=== PATIENT | female | born 1930 | race Caucasian/White ===

== ENCOUNTER 2018-01-09 14:03 | Inpatient (IN) | payer OTHER ==
[~2018-01-09] VITALS: Ht 165.1 cm; Wt 81.6 kg
[~2018-01-09 14:03] MED LIST: AMIO200T2 PO; AMLO5TAB2 PO; ASCO1TAB42 PO; BISA10SU12 RC; CHOL200026 PO; CYAN25006 PO; DOCU-141 PO; GABA-534 PO; Glycerin RC; HYDR-548 PO; HYDR-551 PO; LEVO50TA8 PO; LISI-603 PO; MAGN400O6 PO; OMEP20CA4 PO; OSTEO BI-FLEX1 EACH PO; SIMV20TA2 PO; SULF1TAB48 PO; Sennosides PO; WARF3TAB29 PO; Zolpidem Tartrate PO
--- NOTE | 2018-01-09 14:21 | NUR ---
PT IS IN ROOM #1A. DR HOLLAND EVALUATED THE PT.
[2018-01-09] MEDS ORDERED: CEFTRIAXONE 1 G in IV DEXTROSE 5% 50 ML IV ONE (14:30)
[2018-01-09] MEDS ORDERED: IV NORMAL SALINE 1000 ML BAG IV ONE (14:30)
[2018-01-09] MEDS ORDERED: CEFTRIAXONE 1 G VIAL ONE (14:54)
[2018-01-09 14:59] LABS: BASOPHILS % (AUTO) 0.5 % (0.0-2.0); EOSINOPHILS % (AUTO) 0.1 % (0.0-7.0); HEMATOCRIT 37.2 % (31.2-41.9); HEMOGLOBIN 12.5 g/dL (10.9-14.3); LYMPHOCYTES # (AUTO) 0.6 K/uL (20.0-40.0); LYMPHOCYTES % (AUTO) 9.5 % (20.5-51.5); MEAN CORPUSCULAR HEMOGLOBIN 29.5 uug (24.7-32.8); MEAN CORPUSCULAR HGB CONC 34 g/dL (32.3-35.6); MEAN CORPUSCULAR VOLUME 87.9 fL (75.5-95.3); MONOCYTES # (AUTO) 0.4 K/uL (2.0-10.0); NEUTROPHILS # (AUTO) 5.3 K/uL (1.8-8.9); NEUTROPHILS % (AUTO) 82.9 % (38.5-71.5); PLATELET COUNT (AUTO) 158 K/uL (179-408); RED BLOOD CELL COUNT(AUTO) 4.24 MIL/uL (3.63-4.92); WHITE BLOOD COUNT (AUTO) 6.3 K/uL (3.8-11.8)
[2018-01-09] MEDS ORDERED: ALBUTEROL SULFATE 2.5 MG/3 ML NEBU NEB ONE (15:00)
[2018-01-09] MEDS ORDERED: BENZONATATE 100 MG CAPSULE PO ONE (15:00)
[2018-01-09] MEDS ORDERED: BENZONATATE 100 MG CAPSULE ONE (15:00)
[2018-01-09] MEDS ORDERED: ALBUTEROL SULFATE 2.5 MG/3 ML NEBU ONE (15:01)
[2018-01-09 15:07] LABS: CARBON DIOXIDE 24 mmol/L (21-32); CHLORIDE 104 mmol/L (98-107); CREATININE 1.5 mg/dL (0.6-1.3); GLUCOSE 136 mg/dL (74-106); POTASSIUM 4.4 mmol/L (3.5-5.1); UREA NITROGEN, BLOOD 15 mg/dL (7-18)
[2018-01-09 15:20] LABS: ALANINE AMINOTRANSFERASE 82 U/L (14-59); ALKALINE PHOSPHATASE 104 U/L (50-136); ASPARTATE AMINOTRANSFERASE 61 U/L (15-37); BILIRUBIN,DIRECT 0.2 mg/dL (0.0-0.2); BILIRUBIN,TOTAL 0.7 mg/dL (0.2-1.0); TOTAL PROTEIN, SERUM 6.5 g/dL (6.4-8.2)
[2018-01-09] MEDS ORDERED: IV NORMAL SALINE 0 ML ONE (15:27)
[2018-01-09] MEDS ORDERED: IOHEXOL 350 100 ML INFUS..BTL ONE (15:27)
[2018-01-09] MEDS ORDERED: BENZ-38 PO (15:38)
[2018-01-09] MEDS ORDERED: METO-295 PO (15:38)
[2018-01-09] MEDS ORDERED: DIPH1TAB PO (15:38)
[2018-01-09] MEDS ORDERED: ACET325T53 PO (15:38)
[2018-01-09] MEDS ORDERED: MULT-1045 PO (15:38)
[2018-01-09] MEDS ORDERED: SIMV80TA5 PO (15:38)
[2018-01-09] MEDS ORDERED: GLUC-187 PO (15:38)
[2018-01-09] MEDS ORDERED: DICL100G16 TP (15:38)
[2018-01-09] MEDS ORDERED: OMEP40CA37 PO (15:38)
[2018-01-09] MEDS ORDERED: ALEN70TA45 PO (15:38)
[2018-01-09] MEDS ORDERED: ONDA4TAB10 PO (15:38)
[2018-01-09 16:45] LABS: *BILIRUBIN,URIN NEGATIVE (NEGATIVE); *BLOOD, URINE NEGATIVE (NEGATIVE); *CLARITY,URINE SLIGHTLY CLOUDY (CLEAR); *COLOR,URINE YELLOW (YELLOW); *KETONES,URINE TRACE (NEGATIVE); *PROTEIN,URINE 1+ (NEGATIVE); *UROBILINOGEN,URINE 0.2 E.U./dl (NORMAL); LEUKOCYTE ESTERASE ,URINE NEGATIVE (NEGATIVE); NITRITE, URINE NEGATIVE (NEGATIVE); UGLUCOSE NEGATIVE (NEGATIVE)
[2018-01-09] MEDS ORDERED: PIPERACILLIN SODIUM/TAZOBACTAM 2.25 G in IV DEXTROSE 5% 50 ML IV ONE (16:45)
[2018-01-09 17:14] LABS: BACTERIA,URINE FEW /HPF (NONE SEEN); RBC,URINE 0-3 /HPF (0-3); SQUAMOUS EPITHELIAL CELL,UR MODERATE /HPF (NONE SEEN)
[2018-01-09] MEDS ORDERED: PIPERACILLIN/TAZO 2.25 GM VIAL ONE (17:16)
--- NOTE | 2018-01-09 17:42 | NUR ---
report was given to professor of journalism. pt was transfered to room #218.
--- NOTE | 2018-01-09 18:00 | NUR ---
PATIENT TRANSFERRED FROM ER INTO MEDICAL-SURGICAL FLOOR IN STABLE CONDITION, NO S/S OF DISTRESS, VITAL SIGNS TAKEN AND ARE STABLE. TRANSFERRED ONTO FLOOR WITH FREEDOM HENDERSON CHECKLIST COMPLETED AND SIGNED, ID-BAND PLACED, TELEMETRY MONITORING PLACED, SINUS RHYTHM ON MONITOR.
--- NOTE | 2018-01-09 19:00 | NUR ---
PATIENT ARRIVED BACK ONTO FLOOR FROM VQ-SCAN AT THIS TIME. PATIENT LEFT FOR VQ-SCAN AT 1830. TELEMETRY LEADS PLACED BACK ON.
--- NOTE | 2018-01-09 19:30 | NUR ---
Patient back to room from CT scan. Placed back on electronic device monitor- patient is A-pacing on the monitor. No signs of distress noted.
[2018-01-09] MEDS ORDERED: ONDANSETRON HCL 4 MG TABLET PO PRN (20:00)
[2018-01-09 20:15] VITALS: BP 128/58
[2018-01-09] MEDS ORDERED: ONDANSETRON 4 MG/2 ML VIAL IV PRN (20:15)
[2018-01-09] MEDS ORDERED: ENOXAPARIN SODIUM 30 MG/0.3 ML DISP.SYRIN SQ SCH (20:15)
[2018-01-09] MEDS ORDERED: VANCOMYCIN IV ONE (21:00)
[2018-01-09] MEDS ORDERED: NORMAL SALINE IV ONE (21:00)
[2018-01-09] MEDS: ACETAMINOPHEN 325 MG TABLET PO PRN (21:26)
[2018-01-09] MEDS: SIMVASTATIN 40 MG TABLET PO SCH (21:26)
[2018-01-09] MEDS: IV NS 1000 ML 1,000 ML IV PRN (21:27)
[2018-01-09] MEDS ORDERED: DOXYCYCLINE HYCLATE 100 MG INJ IV ONE (21:34)
[2018-01-09] MEDS ORDERED: VANCOMYCIN 1000 MG VIAL ONE (21:34)
--- NOTE | 2018-01-09 21:44 | NUR ---
Vancomycin IV 1mg dose clarified w/ Dr. Jimenez. Received new order, Vancomycin 1 Gm x 1 dose given.
[2018-01-09] MEDS: DOXYCYCLINE HYCLATE IV 100 MG in IV DEXTROSE 5% 100 ML IV SCH (21:49)
[2018-01-09] MEDS: GUAIFENESIN/DEXTROMETHORPHAN 5 ML UDC PO PRN (21:55)
[2018-01-09] MEDS ORDERED: VANCOMYCIN IV 1 G in PREMIXED 0 EACH IV ONE (22:00)
[2018-01-09] MEDS: IPRATROPIUM BROMIDE 0.5 MG/2.5 ML NEBU NEB SCH (22:03)
[2018-01-09] MEDS: ALBUTEROL SULFATE 2.5 MG/3 ML NEBU NEB SCH (22:03)
[2018-01-10] VITALS: BP 110/55
[2018-01-10] MEDS: IPRATROPIUM BROMIDE 0.5 MG/2.5 ML NEBU NEB SCH ×6 (02:30→22:57)
[2018-01-10] MEDS: ALBUTEROL SULFATE 2.5 MG/3 ML NEBU NEB SCH ×6 (02:30→22:57)
[2018-01-10 04:00] VITALS: BP 132/53
[2018-01-10] MEDS: GUAIFENESIN/DEXTROMETHORPHAN 5 ML UDC PO PRN ×2 (04:25→15:10)
[2018-01-10] MEDS: PANTOPRAZOLE SODIUM 40 MG TABLET.DR PO SCH (06:00)
[2018-01-10 06:48] LABS: BASOPHILS % (AUTO) 0.4 % (0.0-2.0); EOSINOPHILS % (AUTO) 0.1 % (0.0-7.0); HEMOGLOBIN 11.4 g/dL (10.9-14.3); LYMPHOCYTES # (AUTO) 0.5 K/uL (20.0-40.0); LYMPHOCYTES % (AUTO) 9.9 % (20.5-51.5); MEAN CORPUSCULAR HEMOGLOBIN 30.1 uug (24.7-32.8); MEAN CORPUSCULAR HGB CONC 34 g/dL (32.3-35.6); MEAN CORPUSCULAR VOLUME 87.9 fL (75.5-95.3); MONOCYTES # (AUTO) 0.4 K/uL (2.0-10.0); NEUTROPHILS # (AUTO) 4.4 K/uL (1.8-8.9); NEUTROPHILS % (AUTO) 81.6 % (38.5-71.5); PLATELET COUNT (AUTO) 143 K/uL (179-408); RED BLOOD CELL COUNT(AUTO) 3.78 MIL/uL (3.63-4.92); WHITE BLOOD COUNT (AUTO) 5.5 K/uL (3.8-11.8)
[2018-01-10 06:53] LABS: HEMATOCRIT 33.2 % (31.2-41.9)
--- NOTE | 2018-01-10 07:00 | NUR ---
Fairly rested, patient still coughing productively. Instructed to collect sputum per MD order. Specimen container provided. See CHILEL adm po PRN. Assisted to the bathroom. No acute resp distress. A-paced on the monitor.
[2018-01-10 07:04] LABS: THYROID STIMULATING HORMONE 1.223 mIU/mL (0.358-3.740)
[2018-01-10 07:14] LABS: ALANINE AMINOTRANSFERASE 59 U/L (14-59); ALKALINE PHOSPHATASE 80 U/L (50-136); ASPARTATE AMINOTRANSFERASE 37 U/L (15-37); BILIRUBIN,TOTAL 0.4 mg/dL (0.2-1.0); CARBON DIOXIDE 22 mmol/L (21-32); CHLORIDE 104 mmol/L (98-107); CHOLESTEROL 80 mg/dL (<200); CREATININE 1.3 mg/dL (0.6-1.3); GLUCOSE 130 mg/dL (74-106); HDL CHOLESTEROL 38 mg/dL (40-60); MAGNESIUM 1.6 mg/dL (1.8-2.4); POTASSIUM 4.1 mmol/L (3.5-5.1); TOTAL PROTEIN, SERUM 5.9 g/dL (6.4-8.2); TRIGLYCERIDES 86 MG/DL (30-150); UREA NITROGEN, BLOOD 15 mg/dL (7-18)
--- NOTE | 2018-01-10 08:00 | NUR ---
Discussed plan of care with pt re: fall precaution, proper pain management, and management of her cough and needed sputum. Pt agreeable with plan of care. Pt is in no acute distress. Call light is within reach.
[2018-01-10] MEDS: LISINOPRIL 20 MG TABLET PO SCH (09:00)
[2018-01-10] MEDS ORDERED: LEVOTHYROXINE SODIUM 50 MCG TABLET PO SCH (09:00)
[2018-01-10] MEDS ORDERED: VANCOMYCIN IV 1,250 MG in IV DEXTROSE 5% 500 ML IV ONE (09:00)
[2018-01-10] MEDS: BENZONATATE 100 MG CAPSULE PO SCH ×3 (09:02→16:12)
[2018-01-10] MEDS: DOXYCYCLINE HYCLATE IV 100 MG in IV DEXTROSE 5% 100 ML IV SCH ×2 (09:03→20:53)
[2018-01-10] MEDS: GABAPENTIN 300 MG CAPSULE PO SCH ×2 (09:03→16:12)
--- NOTE | 2018-01-10 10:07 | NUR ---
Clinical Pharmacy Note: Vancomycin Pharmacy to Dose Subjective: To start vancomycin in this 87 y/o female for indication of "suspected infection" (elevated temp, reduced renal fxn) Objective: weight 81 kg height 165 cm BMI 30 BUN 15 Scr 1.3 Wbc 5.5 temp 99.6 1gm given 01/09 @2200 in ER Random: 9.4 today with am labs Assessment/Plan Will dose per level d/t age and unstable renal fxn (1.5 last night in er, 1.3 today). Based on random this am, dosed one time of 1500mg today at 0900. next ranomd ordered with tomorrow am labs. Will check in am and re-dose as needed. If renal function were to appear stable, may consider starting regimen. Will follow
[2018-01-10 11:38] VITALS: BP 146/53
[2018-01-10] MEDS: ACETAMINOPHEN 325 MG TABLET PO PRN (15:10)
[2018-01-10] MEDS: MAGNESIUM SULFATE/D5W 100 ML IV SCH ×2 (15:14→16:17)
[2018-01-10] MEDS: WARFARIN SODIUM 3 MG TABLET PO SCH (16:13)
[2018-01-10 16:23] VITALS: BP 121/61
[2018-01-10] MEDS ORDERED: ZOLPIDEM 5 MG TABLET PO PRN (17:45)
[2018-01-10] MEDS: HYDROCODONE/APAP 5-325MG TABLET PO PRN ×2 (17:56→23:22)
--- NOTE | 2018-01-10 18:52 | NUR ---
Plan of care effective. No fall noted this shift. Cough was managed with Robitussin, honey and tessalon pearls, and vicodin. HHN tx was given routinely as ordered by RT. Pt is in no acute distress.
--- NOTE | 2018-01-10 18:54 | NUR ---
Pt unable to cough out phlegm/sputum specimen. IV was restarted on left F/A secondary to IV on right AC was infiltrated - applied ice and elevated.
--- NOTE | 2018-01-10 20:00 | NUR ---
PATIENT RESTING,LESS COUGH,CONTINUE BREATHING TREATMENT PER R.T.,EFFECTIVE,ON O2 2L/M VIA N/C,NO RESPIRATORY DISTRESS,FALL PRECAUTIONS MAINTAINS.
[2018-01-10 20:41] VITALS: BP 117/48
[2018-01-10] MEDS: SIMVASTATIN 40 MG TABLET PO SCH (20:54)
[2018-01-10] MEDS: LACTOBACILLUS RHAMNOSUS GG 1 EACH CAPSULE PO SCH (20:54)
[2018-01-10] MEDS: IV NS 1000 ML 1,000 ML IV PRN (23:22)
[2018-01-11 00:42] VITALS: BP 158/69
[2018-01-11] MEDS: ALBUTEROL SULFATE 2.5 MG/3 ML NEBU NEB SCH ×6 (03:12→23:54)
[2018-01-11] MEDS: IPRATROPIUM BROMIDE 0.5 MG/2.5 ML NEBU NEB SCH ×6 (03:12→23:54)
[2018-01-11 04:00] VITALS: BP 132/69
[2018-01-11] MEDS: PANTOPRAZOLE SODIUM 40 MG TABLET.DR PO SCH (06:29)
[2018-01-11] MEDS: LEVOTHYROXINE SODIUM 50 MCG TABLET PO SCH (06:29)
[2018-01-11] MEDS: GUAIFENESIN/DEXTROMETHORPHAN 5 ML UDC PO PRN ×2 (06:29→20:40)
--- NOTE | 2018-01-11 06:57 | NUR ---
PATIENT IS AFEBRILE,ALERT AND ORIENTED,AMBULATORY .A PACING ON MONITOR,ELVIS DM ADMIN FOR COUGHING.
[2018-01-11 07:00] LABS: CARBON DIOXIDE 27 mmol/L (21-32); CHLORIDE 102 mmol/L (98-107); CREATININE 1.2 mg/dL (0.6-1.3); GLUCOSE 109 mg/dL (74-106); MAGNESIUM 2.1 mg/dL (1.8-2.4); POTASSIUM 4.7 mmol/L (3.5-5.1); UREA NITROGEN, BLOOD 15 mg/dL (7-18); VANCOMYCIN,RANDOM 11.9 ug/mL (18.0-26.0)
--- NOTE | 2018-01-11 07:00 | NUR ---
IV GOT INFILTRATED,RESTARTED IN RT. FOREARM WITH ANGIO GA 22.
[2018-01-11 08:00] VITALS: BP 161/64
[2018-01-11] MEDS: HYDROCODONE/APAP 5-325MG TABLET PO PRN ×3 (08:08→20:40)
[2018-01-11] MEDS: LACTOBACILLUS RHAMNOSUS GG 1 EACH CAPSULE PO SCH ×2 (08:08→20:40)
[2018-01-11] MEDS: BENZONATATE 100 MG CAPSULE PO SCH ×3 (08:08→17:00)
[2018-01-11] MEDS: GABAPENTIN 300 MG CAPSULE PO SCH ×2 (08:09→17:00)
[2018-01-11] MEDS: LISINOPRIL 20 MG TABLET PO SCH (08:09)
[2018-01-11] MEDS: DOXYCYCLINE HYCLATE IV 100 MG in IV DEXTROSE 5% 100 ML IV SCH ×2 (10:06→20:38)
[2018-01-11] MEDS ORDERED: VANCOMYCIN IV 1,250 MG in IV NORMAL SALINE 500 ML IV SCH (11:00)
[2018-01-11 11:16] VITALS: BP 141/53
--- NOTE | 2018-01-11 13:38 | NUR ---
Clinical Pharmacy Note: Vancomycin Pharmacy to Dose Subjective: To continue vancomycin in this 87 y/o female for indication of "suspected infection" (possible CAP/bronchitis) Objective: weight 81 kg height 165 cm BMI 30 BUN 15 Scr 1.2 Wbc 5.5(01/10) temp 97.8 Random: 11.9 today with am labs Assessment/Plan Since renal function is stable, will start scheduled dosing. Vancomycin 1250mg IV every 30 hrs, first dose today at 1100. Will draw trough by 4th dose(not done yet) for expected trough around 15. Will follow daily.
[2018-01-11] MEDS: CEFTRIAXONE 1 G in IV DEXTROSE 5% 50 ML IV SCH (14:19)
[2018-01-11 15:05] VITALS: BP 112/76
[2018-01-11] MEDS: WARFARIN SODIUM 3 MG TABLET PO SCH (17:02)
--- NOTE | 2018-01-11 20:00 | NUR ---
Received pt alert and oriented x 4 with at bedside. No s/s of distress noted at this time. Will continue to monitor.
[2018-01-11 20:21] VITALS: BP 168/63
[2018-01-11] MEDS: SIMVASTATIN 40 MG TABLET PO SCH (20:38)
[2018-01-12] MEDS: IPRATROPIUM BROMIDE 0.5 MG/2.5 ML NEBU NEB SCH ×6 (02:54→22:31)
[2018-01-12] MEDS: ALBUTEROL SULFATE 2.5 MG/3 ML NEBU NEB SCH ×6 (02:54→22:31)
[2018-01-12 04:00] VITALS: BP 115/73
[2018-01-12] MEDS: GUAIFENESIN/DEXTROMETHORPHAN 5 ML UDC PO PRN ×3 (05:23→20:38)
[2018-01-12] MEDS: HYDROCODONE/APAP 5-325MG TABLET PO PRN ×3 (05:24→20:39)
--- NOTE | 2018-01-12 05:44 | NUR ---
Intermittent coughing noted throughout the night. Medications administered as ordered. No respiratory distress noted. All needs met. Call light within reach. Vital signs WNL. Will continue to monitor and endorse to day shift nurse.
[2018-01-12] MEDS: LEVOTHYROXINE SODIUM 50 MCG TABLET PO SCH (06:29)
[2018-01-12] MEDS: PANTOPRAZOLE SODIUM 40 MG TABLET.DR PO SCH (06:29)
[2018-01-12] MEDS: LACTOBACILLUS RHAMNOSUS GG 1 EACH CAPSULE PO SCH ×2 (08:52→20:20)
[2018-01-12] MEDS: LISINOPRIL 20 MG TABLET PO SCH (08:52)
[2018-01-12] MEDS: DOXYCYCLINE HYCLATE IV 100 MG in IV DEXTROSE 5% 100 ML IV SCH ×2 (08:52→20:22)
[2018-01-12] MEDS: GABAPENTIN 300 MG CAPSULE PO SCH ×2 (08:52→16:23)
[2018-01-12] MEDS: BENZONATATE 100 MG CAPSULE PO SCH ×3 (08:52→16:23)
--- NOTE | 2018-01-12 10:14 | NUR ---
Clinical Pharmacy Note: Vancomycin Pharmacy to Dose Subjective: To continue vancomycin in this 87 y/o female for indication of "suspected infection" (possible CAP/bronchitis) Objective: weight 81 kg height 165 cm BMI 30 BUN 15 (01/11) Scr 1.2 (01/11) Wbc 5.5(01/10) temp 97.6 Assessment/Plan Will continue same dose of Vancomycin 1250mg IV every 30 hrs for today. Second dose is due today at 1700. Will draw trough by 4th dose(not done yet) for expected trough around 15. Will follow daily.
[2018-01-12] MEDS ORDERED: WARFARIN SODIUM 1 MG TABLET PO SCH (11:30)
[2018-01-12] MEDS ORDERED: ACETYLCYSTEINE 200 MG/1 ML 10 ML VIAL NEB SCH (12:00)
[2018-01-12] MEDS: CEFTRIAXONE 1 G in IV DEXTROSE 5% 50 ML IV SCH (14:24)
[2018-01-12] MEDS: ACETYLCYSTEINE 10% 4ML VIAL NEB SCH ×2 (15:35→22:31)
[2018-01-12 15:40] VITALS: BP 143/68
[2018-01-12] MEDS: FUROSEMIDE 20 MG/2 ML VIAL IV SCH ×2 (16:23→20:20)
[2018-01-12] MEDS ORDERED: WARFARIN SODIUM 3 MG TABLET PO SCH (17:00)
[2018-01-12] MEDS: KETOROLAC TROMETHAMINE 15 MG INJ IVP PRN (18:15)
--- NOTE | 2018-01-12 18:30 | NUR ---
Plan of care effective. PT unable to give sputum. Pts cough managed with Robitussin and pain managed with vicodin along with her routine meds.
[2018-01-12] MEDS: SIMVASTATIN 40 MG TABLET PO SCH (20:20)
[2018-01-12 20:36] VITALS: BP 139/59
--- NOTE | 2018-01-12 20:40 | NUR ---
PATIENT IS AWAKE IN BED, AAOX3 C/O OF RIB PAIN WITH COUGHING. PAIN MEDS GIVEN PRN, VSS WNL. SAFETY AND COMFORT MEASURES IN PLACE. WILL CONTINUE TO MONITOR PATIENT
[2018-01-13] MEDS: IPRATROPIUM BROMIDE 0.5 MG/2.5 ML NEBU NEB SCH ×6 (02:31→22:56)
[2018-01-13] MEDS: ALBUTEROL SULFATE 2.5 MG/3 ML NEBU NEB SCH ×6 (02:31→22:56)
[2018-01-13 04:00] VITALS: BP 140/59
[2018-01-13] MEDS: GUAIFENESIN/DEXTROMETHORPHAN 5 ML UDC PO PRN ×3 (05:49→23:51)
[2018-01-13] MEDS: HYDROCODONE/APAP 5-325MG TABLET PO PRN ×3 (05:49→21:15)
[2018-01-13] MEDS: LEVOTHYROXINE SODIUM 50 MCG TABLET PO SCH (06:04)
[2018-01-13] MEDS: PANTOPRAZOLE SODIUM 40 MG TABLET.DR PO SCH (06:04)
--- NOTE | 2018-01-13 06:10 | NUR ---
PATIENT SLEPT WELL THROUGH THE NIGHT. NO C/O SOB ON THIS SHIFT. VSS WITHIN PATIENT'S BASELINE, NO FEVER. PRN PAIN MEDS GIVEN X2 WITH EFFECT. SAFETY AND COMFORT MEASURES MAINTAINED AT TIMES
[2018-01-13] MEDS: ACETYLCYSTEINE 10% 4ML VIAL NEB SCH (07:30)
[2018-01-13] MEDS: GABAPENTIN 300 MG CAPSULE PO SCH ×2 (08:19→16:26)
[2018-01-13] MEDS: LACTOBACILLUS RHAMNOSUS GG 1 EACH CAPSULE PO SCH ×2 (08:19→21:04)
[2018-01-13] MEDS: BENZONATATE 100 MG CAPSULE PO SCH ×3 (08:19→16:26)
[2018-01-13 08:20] LABS: BASOPHILS % (AUTO) 0.8 % (0.0-2.0); EOSINOPHILS # (AUTO) 0.1 K/uL (0.0-0.7); EOSINOPHILS % (AUTO) 1.9 % (0.0-7.0); HEMATOCRIT 34.1 % (31.2-41.9); HEMOGLOBIN 11.9 g/dL (10.9-14.3); LYMPHOCYTES # (AUTO) 1.3 K/uL (20.0-40.0); LYMPHOCYTES % (AUTO) 26.6 % (20.5-51.5); MEAN CORPUSCULAR HGB CONC 35 g/dL (32.3-35.6); MEAN CORPUSCULAR VOLUME 86.2 fL (75.5-95.3); MONOCYTES # (AUTO) 0.5 K/uL (2.0-10.0); MONOCYTES % (AUTO) 9.9 % (0.0-11.0); NEUTROPHILS # (AUTO) 3.1 K/uL (1.8-8.9); NEUTROPHILS % (AUTO) 60.8 % (38.5-71.5); RED BLOOD CELL COUNT(AUTO) 3.96 MIL/uL (3.63-4.92); WHITE BLOOD COUNT (AUTO) 5.1 K/uL (3.8-11.8)
[2018-01-13] MEDS: FUROSEMIDE 20 MG/2 ML VIAL IV SCH (08:20)
[2018-01-13 08:25] LABS: PLATELET COUNT (AUTO) 193 K/uL (179-408)
[2018-01-13] MEDS: LISINOPRIL 20 MG TABLET PO SCH (08:26)
[2018-01-13] MEDS: DOXYCYCLINE HYCLATE IV 100 MG in IV DEXTROSE 5% 100 ML IV SCH (08:32)
[2018-01-13 08:35] LABS: CARBON DIOXIDE 30 mmol/L (21-32); CHLORIDE 100 mmol/L (98-107); CREATININE 1.4 mg/dL (0.6-1.3); GLUCOSE 104 mg/dL (74-106); MAGNESIUM 1.8 mg/dL (1.8-2.4); PHOSPHOROUS 4.6 mg/dL (2.5-4.9); POTASSIUM 4.5 mmol/L (3.5-5.1); UREA NITROGEN, BLOOD 20 mg/dL (7-18)
[2018-01-13 11:21] VITALS: BP 128/67
[2018-01-13] MEDS: CEFTRIAXONE 1 G in IV DEXTROSE 5% 50 ML IV SCH (13:02)
[2018-01-13] MEDS: GUAIFENESIN LA 600 MG TABLET.SA PO SCH ×2 (14:13→21:04)
[2018-01-13] MEDS: methylPREDNISolone SOD SUCC 40 MG/ML VIAL IV SCH ×2 (14:13→21:24)
[2018-01-13 15:10] VITALS: BP 118/72
[2018-01-13] MEDS: ACETYLCYSTEINE 20% 800 MG/4 ML VIAL NEB SCH ×2 (15:12→22:56)
[2018-01-13] MEDS ORDERED: WARFARIN SODIUM 1 MG TABLET PO SCH (17:00)
--- NOTE | 2018-01-13 18:43 | NUR ---
Clarification regarding MD's order nasal swab for whooping cough. Lab will verify.
--- NOTE | 2018-01-13 18:44 | NUR ---
Patient alert, in no distress, non productive cough noted, no SOB. Patient still c/o of rib pain from coughing, pain management as ordered. Patient remains afebrile. Requested patient to provide sputum sample but patient is unable to expectorate. Patient stated "I don't know why but nothing is coming out". Will endorse to the oncoming shift RN.
--- NOTE | 2018-01-13 19:50 | NUR ---
RECEIVED PATIENT AWAKE IN BED WITH AT BEDSIDE. PATIENT IS A/O X4. VERY PLEASANT WHEN APPROACHED. DENIES PAIN OR DISCOMFORT. ON O2 2L NC SATING WELL. NO RESP. DISTRESS NOTED. DENIES SOB. H/L INTACT AND PATENT. CALL LIGHT IN REACH. ALL NEEDS ATTENDED.
[2018-01-13 20:00] VITALS: BP 159/56
[2018-01-13] MEDS: SIMVASTATIN 40 MG TABLET PO SCH (21:04)
[2018-01-13] MEDS: KETOROLAC TROMETHAMINE 15 MG INJ IVP PRN (23:49)
--- NOTE | 2018-01-13 23:51 | NUR ---
PATIENT AWAKE IN BED. C/O COUGH AND PAIN UNDER RIBS FROM COUGHING. PATIENT GIVEN ROBITUSSIN 5ML PO PRN FOR COUGH AND TORADOL 15MG IVP PER RN. CALL LIGHT IN REACH. ALL NEEDS ATTENDED. WILL CONTINUE TO MONITOR.
[2018-01-14] MEDS: ALBUTEROL SULFATE 2.5 MG/3 ML NEBU NEB SCH ×6 (03:01→22:30)
[2018-01-14] MEDS: IPRATROPIUM BROMIDE 0.5 MG/2.5 ML NEBU NEB SCH ×6 (03:01→22:30)
[2018-01-14 05:11] VITALS: BP 162/77
[2018-01-14] MEDS: methylPREDNISolone SOD SUCC 40 MG/ML VIAL IV SCH ×3 (05:58→21:21)
[2018-01-14] MEDS: LEVOTHYROXINE SODIUM 50 MCG TABLET PO SCH (06:05)
[2018-01-14] MEDS: PANTOPRAZOLE SODIUM 40 MG TABLET.DR PO SCH ×2 (06:05→21:18)
[2018-01-14 06:11] LABS: BASOPHILS % (AUTO) 0.2 % (0.0-2.0); EOSINOPHILS % (AUTO) 0.3 % (0.0-7.0); HEMATOCRIT 32.1 % (31.2-41.9); HEMOGLOBIN 11.3 g/dL (10.9-14.3); LYMPHOCYTES # (AUTO) 0.5 K/uL (20.0-40.0); LYMPHOCYTES % (AUTO) 17.2 % (20.5-51.5); MEAN CORPUSCULAR HEMOGLOBIN 29.9 uug (24.7-32.8); MEAN CORPUSCULAR HGB CONC 35 g/dL (32.3-35.6); MEAN CORPUSCULAR VOLUME 85.3 fL (75.5-95.3); MONOCYTES # (AUTO) 0.1 K/uL (2.0-10.0); MONOCYTES % (AUTO) 2.5 % (0.0-11.0); NEUTROPHILS # (AUTO) 2.2 K/uL (1.8-8.9); NEUTROPHILS % (AUTO) 79.8 % (38.5-71.5); PLATELET COUNT (AUTO) 192 K/uL (179-408); RED BLOOD CELL COUNT(AUTO) 3.77 MIL/uL (3.63-4.92); WHITE BLOOD COUNT (AUTO) 2.8 K/uL (3.8-11.8)
[2018-01-14 06:13] LABS: CARBON DIOXIDE 27 mmol/L (21-32); CHLORIDE 98 mmol/L (98-107); CREATININE 1.3 mg/dL (0.6-1.3); GLUCOSE 142 mg/dL (74-106); PHOSPHOROUS 4.4 mg/dL (2.5-4.9); POTASSIUM 4.5 mmol/L (3.5-5.1); UREA NITROGEN, BLOOD 27 mg/dL (7-18)
[2018-01-14] MEDS: LISINOPRIL 20 MG TABLET PO SCH (06:20)
--- NOTE | 2018-01-14 06:20 | NUR ---
PATIENT AWAKE IN BED. RECHECKED PATIENTS BP AND RECEIVED 177/75. PATIENT GIVEN EARLY DOSE OF LISINOPRIL 20MG PO. ALL OTHER VSS. PATIENT DENIES PAIN. SLEPT WELL. CALL LIGHT IN REACH. ALL NEEDS ATTENDED. WILL CONTINUE TO MONITOR AND ASSESS.
[2018-01-14 06:58] VITALS: BP 148/67
--- NOTE | 2018-01-14 06:58 | NUR ---
rechecked patients blood pressure. trending down. 148/67. all other vss.
[2018-01-14] MEDS: ACETYLCYSTEINE 20% 800 MG/4 ML VIAL NEB SCH ×3 (07:31→22:30)
[2018-01-14] MEDS: BENZONATATE 100 MG CAPSULE PO SCH ×3 (08:00→16:32)
[2018-01-14] MEDS: LACTOBACILLUS RHAMNOSUS GG 1 EACH CAPSULE PO SCH ×2 (08:00→20:17)
[2018-01-14] MEDS: GUAIFENESIN LA 600 MG TABLET.SA PO SCH ×2 (08:00→20:17)
[2018-01-14] MEDS: GABAPENTIN 300 MG CAPSULE PO SCH ×2 (08:00→16:32)
[2018-01-14] MEDS: HYDROCODONE/APAP 5-325MG TABLET PO PRN ×2 (08:04→20:18)
[2018-01-14 11:12] VITALS: BP 136/53
[2018-01-14] MEDS: CEFTRIAXONE 1 G in IV DEXTROSE 5% 50 ML IV SCH (13:31)
--- NOTE | 2018-01-14 13:45 | NUR ---
NASAL SWAB SPECIMEN FOR WHOOPING COUGH SENT TO THE LAB ORDERED.
[2018-01-14 15:03] VITALS: BP 142/44
--- NOTE | 2018-01-14 18:00 | NUR ---
Patient alert, in no distress. Patient is pleasant, cooperative with care. Patient stated "I think I am getting better and improving". Patient no c/o of SOB. VS stable, afebrile. IV antibiotics administered as ordered, no adverse reaction noted. Safety measures in place. Spouse at bedside. Will continue to monitor.
[2018-01-14] MEDS ORDERED: hydrALAZINE HCL 10 MG TABLET PO PRN (19:45)
[2018-01-14 19:46] VITALS: BP 159/51
--- NOTE | 2018-01-14 20:15 | NUR ---
RECEIVED PATIENT AWAKE IN BED WITH AT BEDSIDE. PATIENT IS A/O X4. VERY PLEASANT WHEN APPROACHED. ASKING FOR NORCO. C/O PAIN UNDER BILATERAL RIBS, DUE TO COUGHING. PATIENT GIVEN NORCO 1 TAB PO PRN FOR PAIN. ON O2 2L NC SATING WELL. NO RESP. DISTRESS NOTED. DENIES SOB. H/L INTACT AND PATENT, NOTED TO LEFT HAND #22 GAUGE. CALL LIGHT IN REACH. ALL NEEDS ATTENDED.
[2018-01-14] MEDS: SIMVASTATIN 40 MG TABLET PO SCH (20:17)
[2018-01-14] MEDS ORDERED: MAG HYDROX/AL HYDROX/SIMETH 30 ML LIQUID UDC PO PRN (21:15)
[2018-01-14] MEDS: GUAIFENESIN/DEXTROMETHORPHAN 5 ML UDC PO PRN (21:46)
[2018-01-14] MEDS: KETOROLAC TROMETHAMINE 15 MG INJ IVP PRN (22:53)
[2018-01-15] MEDS: IPRATROPIUM BROMIDE 0.5 MG/2.5 ML NEBU NEB SCH ×6 (03:34→22:30)
[2018-01-15] MEDS: ALBUTEROL SULFATE 2.5 MG/3 ML NEBU NEB SCH ×6 (03:34→22:30)
[2018-01-15 04:39] VITALS: BP 128/74
[2018-01-15] MEDS: methylPREDNISolone SOD SUCC 40 MG/ML VIAL IV SCH ×3 (05:36→21:06)
--- NOTE | 2018-01-15 05:50 | NUR ---
PATIENT AWAKE IN BED. SLEPT WELL THROUGHOUT THE NIGHT. NO C/O PAIN AT THIS TIME. NO RESP. DISTRESS NOTED. VSS. CALL LIGHT IN REACH. ALL NEEDS ATTENDED. WILL CONTINUE TO MONITOR.
[2018-01-15] MEDS: LEVOTHYROXINE SODIUM 50 MCG TABLET PO SCH (06:03)
[2018-01-15] MEDS: ACETYLCYSTEINE 20% 800 MG/4 ML VIAL NEB SCH ×3 (07:04→22:30)
[2018-01-15] MEDS: BENZONATATE 100 MG CAPSULE PO SCH ×3 (08:08→21:06)
[2018-01-15] MEDS: LACTOBACILLUS RHAMNOSUS GG 1 EACH CAPSULE PO SCH ×2 (08:08→21:06)
[2018-01-15] MEDS: GABAPENTIN 300 MG CAPSULE PO SCH ×2 (08:08→16:20)
[2018-01-15] MEDS: PANTOPRAZOLE SODIUM 40 MG TABLET.DR PO SCH ×2 (08:08→21:06)
[2018-01-15] MEDS: GUAIFENESIN LA 600 MG TABLET.SA PO SCH (08:08)
[2018-01-15] MEDS: LISINOPRIL 20 MG TABLET PO SCH (08:08)
[2018-01-15 11:26] VITALS: BP 131/59
[2018-01-15] MEDS ORDERED: GUAIFENESIN/CODEINE 5 ML LIQUID UDC PO PRN (12:15)
[2018-01-15] MEDS: CEFTRIAXONE 1 G in IV DEXTROSE 5% 50 ML IV SCH (13:53)
[2018-01-15 15:38] VITALS: BP 129/51
[2018-01-15] MEDS ORDERED: WARFARIN SODIUM 3 MG TABLET PO SCH (17:00)
[2018-01-15 20:00] VITALS: BP 129/52
--- NOTE | 2018-01-15 20:00 | NUR ---
Pt observed to be AAO x 4 and states that she feels a lot better now that the amount of coughing she has been experiencing is now suppressed. Safety measures provided. Bed in low, locked position. Call light within reach. Pt aware of plan of care. Will continue to monitor throughout the night.
[2018-01-15] MEDS: SIMVASTATIN 40 MG TABLET PO SCH (21:06)
[2018-01-16 04:00] VITALS: BP 135/84
[2018-01-16] MEDS: ALBUTEROL SULFATE 2.5 MG/3 ML NEBU NEB SCH ×3 (04:17→11:30)
[2018-01-16] MEDS: IPRATROPIUM BROMIDE 0.5 MG/2.5 ML NEBU NEB SCH ×3 (04:17→11:30)
[2018-01-16] MEDS: methylPREDNISolone SOD SUCC 40 MG/ML VIAL IV SCH ×2 (06:38→13:20)
[2018-01-16] MEDS: BENZONATATE 100 MG CAPSULE PO SCH ×2 (06:38→13:26)
[2018-01-16] MEDS: LEVOTHYROXINE SODIUM 50 MCG TABLET PO SCH (06:38)
--- NOTE | 2018-01-16 06:57 | NUR ---
Pt slept comfortably throughout the night. No s/s of respiratory distress noted. Will endorse accordingly.
[2018-01-16] MEDS: ACETYLCYSTEINE 20% 800 MG/4 ML VIAL NEB SCH (07:16)
--- NOTE | 2018-01-16 08:00 | NUR ---
awake ALERT COOPERATE WELL NO ACUTE DISTRESS NO PAIN ON ASPIRATION AND FALL PRECAUTION CALL LIGHT WITHIN REACH AND INSTRUCTION TO USE WHEN NEEDED
[2018-01-16] MEDS: LISINOPRIL 20 MG TABLET PO SCH (08:26)
[2018-01-16] MEDS: LACTOBACILLUS RHAMNOSUS GG 1 EACH CAPSULE PO SCH (08:26)
[2018-01-16] MEDS: GABAPENTIN 300 MG CAPSULE PO SCH (08:27)
[2018-01-16] MEDS: PANTOPRAZOLE SODIUM 40 MG TABLET.DR PO SCH (08:27)
[2018-01-16] MEDS: ACETAMINOPHEN 325 MG TABLET PO PRN (08:27)
[2018-01-16 11:20] VITALS: BP 130/63
[2018-01-16] MEDS ORDERED: METH4TAB3 PO (13:16)
[2018-01-16] MEDS ORDERED: PRED20TA PO (13:16)
[2018-01-16] MEDS ORDERED: HYDR-3326 PO (13:16)
[2018-01-16] MEDS ORDERED: BENZ-38 PO (13:16)
[2018-01-16] MEDS: CEFTRIAXONE 1 G in IV DEXTROSE 5% 50 ML IV SCH (13:21)
--- NOTE | 2018-01-16 14:00 | NUR ---
Rosi MARCUM SEE PATIENT AND ORDER OK TO D/C HOME TODAY WITH DR AYALA
--- NOTE | 2018-01-16 14:30 | NUR ---
D/C INSTRUCTION REGARDING F/U WITH OWN PMD CALL FOR APPIONTMENT CONTINUE HOME MEDICINE ORDER AND PHAMACY EXPLAINED ALL HOME MEDICINE AND DR AYALA TO PATIENT AND ,VERBALIZES UNDERSTAND AND SIGNS D/C SHEET HL WAS DISCONTINUE PRIOR D/C HOME TODAY
[2018-01-16 15:15] VITALS: BP 145/56
--- NOTE | 2018-01-16 15:45 | NUR ---
D/C HOME WITH HER BELONGING NO ACUTE DISTRESS O2 SAT ON RA WAS 93% ENC TO COUGH AND DEEP BREATH [place] WELL CONDITION STABLE ACCOMPANIES WITH
[2018-01-16] MEDS ORDERED: WARFARIN SODIUM 3 MG TABLET PO SCH (17:00)
[2018-01-18] MEDS ORDERED: WARFARIN SODIUM 1 MG TABLET PO SCH (17:00)
== END 2018-01-16 15:50 | disposition home or self-care (01) | DRG 193 ==
LOC: ER 14:04 → TELE 17:42 → MED 01-11 13:50
PROVIDERS: ADMIT Nurse Practitioner Acute Care; ATTEND Nurse Practitioner Acute Care
DX: J12.9 Viral pneumonia, unspecified (principal); G93.40 Encephalopathy, unspecified; I50.33 Acute on chronic diastolic (congestive) heart failure; D68.59 Other primary thrombophilia; D69.6 Thrombocytopenia, unspecified; E83.51 Hypocalcemia; I48.0 Paroxysmal atrial fibrillation; J21.9 Acute bronchiolitis, unspecified; B34.9 Viral infection, unspecified; I11.0 Hypertensive heart disease with heart failure; F03.90 Unspecified dementia, unspecified severity, without behavioral disturbance, psychotic disturbance, mood disturbance, and anxiety; Z95.1 Presence of aortocoronary bypass graft; J20.8 Acute bronchitis due to other specified organisms; E78.5 Hyperlipidemia, unspecified; Z90.710 Acquired absence of both cervix and uterus; Z90.49 Acquired absence of other specified parts of digestive tract; Z95.3 Presence of xenogenic heart valve; Z79.01 Long term (current) use of anticoagulants; Z95.0 Presence of cardiac pacemaker; K21.9 Gastro-esophageal reflux disease without esophagitis; M81.0 Age-related osteoporosis without current pathological fracture; M94.0 Chondrocostal junction syndrome [Tietze]; R59.1 Generalized enlarged lymph nodes; Z79.899 Other long term (current) drug therapy
CPT/HCPCS: 36415; 70030-TC; 71045; 71250; 83605; 83615; 83735; 84100; 84443; 85025; 85610; 85651; 85730; 87040; 87070; 87086; 87278; 87400; 93005; 93307; 94640; 94664; 97110; 97116; 97530; A4663; A9540; A9567; J0696; J1650; J1885; J1940; J2543; J2920; J3370; J3475; J3490; J3590; J7030; J7040; J7050; J7060; Q9967